=== PATIENT | female | born 1985 | race African-American/Black ===

== ENCOUNTER 2021-04-21 08:24 | Day surgery (SDC) | payer OTHER, SELFPAY ==
[~2021-04-21] VITALS: Ht 172.7 cm; Wt 84.8 kg
[2021-04-21] MEDS ORDERED: fentaNYL citrate 0.05 MG/ML VIAL ONE (10:41)
[2021-04-21] MEDS ORDERED: diphenhydrAMINE 50 MG/ML VIAL ONE (10:41)
[2021-04-21] MEDS ORDERED: LIDOCAINE 2% 100 MG/5 ML UJET TP ONE ×2 (10:41→11:20)
[2021-04-21] MEDS ORDERED: MIDAZOLAM 5 MG/5 ML VIAL ONE (10:41)
[2021-04-21] MEDS ORDERED: fentaNYL citrate 0.05 MG/ML VIAL IVP ONE (11:20)
[2021-04-21] MEDS ORDERED: MIDAZOLAM 2 MG/2 ML VIAL IVP ONE (11:20)
== END 2021-04-21 12:28 | disposition home or self-care (01) ==
LOC: MOR 08:24 → MMU 08:26 → MOR 12:28
PROVIDERS: ATTEND Internal Medicine Gastroenterology
DX: K62.5 Hemorrhage of anus and rectum (principal); K52.9 Noninfective gastroenteritis and colitis, unspecified; K85.20 Alcohol induced acute pancreatitis without necrosis or infection; R14.1 Gas pain; F17.290 Nicotine dependence, other tobacco product, uncomplicated; Z79.899 Other long term (current) drug therapy; Z20.822 Contact with and (suspected) exposure to COVID-19
CPT/HCPCS: 45380; 81025; 87426; J2250; J3010; J1200